=== PATIENT | male | born 2000 | race Caucasian/White ===

== ENCOUNTER 2023-08-17 17:30 | Outpatient (CLI) | payer OTHER ==
--- NOTE | 2023-08-18 14:58 | XRAY Report ---
PROCEDURE: Cervical Spine 2 View INDICATIONS: STRAIN OF MUSCLE, FASCIA AND TENDON AT NECK LEVEL TECHNIQUE: 2 view(s) of the cervical spine were acquired. COMPARISON: None. FINDINGS: Bones: No fractures or dislocations to the C7-T1 level. The lateral masses of C1 appear intact on t he odontoid view. No suspicious bony lesions. There is straightening of cervical curvature. Soft tissues: No prevertebral soft tissue swelling. IMPRESSION: Straightening of cervical curvature, possibly positional. Reviewed by: Miracle Ferreira MD on 08/18/2023 2:57 PM PDT Approved by: Miracle Ferreira MD on 08/18/2023 2:57 PM PDT Station ID: [id number]
== END 2023-08-17 17:31 | disposition home or self-care (01) ==
LOC: DI 17:30
PROVIDERS: ATTEND Family Medicine
DX: S16.1XXA Strain of muscle, fascia and tendon at neck level, initial encounter (principal)